=== PATIENT | female | born 1990 | race Caucasian/White ===

== ENCOUNTER 2018-08-05 20:55 | Emergency (ER) | payer BC, OTHER ==
--- NOTE | 2018-08-05 21:54 | RADIOLOGY REPORT (SQ) ---
EXAM DESCRIPTION: XR FOOT 3 OR MORE VIEWS COMPLETED DATE/TME: 08/05/2018 00:00 CLINICAL HISTORY: 28 years, Female, injury Findings: Bony alignment is anatomic. No fracture or dislocation. Soft tissues are unremarkable. IMPRESSION: No fracture.
[2018-08-05] MEDS ORDERED: ACETAMINOPHEN 325 MG TABLET PO ONE (23:29)
--- NOTE | 2018-08-05 23:33 | ER Document Report ---
HPI - HPI Patient complains to provider of: left heel pain Time Seen by Provider: 08/05/18 23:29 Context: Patient is a 28-year-old female presents to the emergency department complaining of generalized left heel pain. Patient states 4 days ago she was horsing around with friends when she hit her left heel on a heater. States she initially had pain at that time but states the pain had gotten better. Patient then states 2 days ago she hopped about 2 feet off a ladder and landed again on her left heel. Patient states since then she has had increased pain which has not been resolved. Patient states she did take Motrin prior to arrival to the emergency room. Patient denies any pain in her left ankle, left tib-fib, left knee, left femur or left hip. Past medical history: None Medications: None Allergies: None Past Medical History - General Information source: Patient - Social History Smoking Status: Never Smoker Family History: Reviewed & Not Pertinent Vertical Provider Document - CONSTITUTIONAL Agree With Documented VS: Yes Notes: GENERAL: Alert, interacts well. No acute distress. HEAD: Normocephalic, atraumatic. EYES: Pupils equal, round, and reactive to light. Extraocular movements intact. ENT: Oral mucosa moist, tongue midline. NECK: Full range of motion. Supple. Trachea midline. LUNGS: Clear to auscultation bilaterally, no wheezes, rales, or rhonchi. No respiratory distress. HEART: Regular rate and rhythm. No murmur ABDOMEN: Soft, non-tender. Non-distended. Bowel sounds present in all 4 quadrants. EXTREMITIES: Moves all 4 extremities spontaneously. normal radial and dorsalis pedis pulses bilaterally. No cyanosis. Minor edema noted to patient's left ankle. Patient denies pain on palpation lateral or medial malleolus. Patient only complains of pain to palpation of left heel. No obvious ecchymosis, erythema or trauma noted. No pain upon palpation patient's left tib-fib, left calf, left knee, left femur, left hip. BACK: no cervical, thoracic, lumbar midline tenderness. No saddle anesthesia, normal distal neurovascular exam. NEUROLOGICAL: Alert and oriented x3. Normal speech. cranial nerves II through XII grossly intact PSYCH: Normal affect, normal mood. SKIN: Warm, dry, normal turgor. No rashes or lesions noted. Course - Re-evaluation Re-evalutation: Discussed with patient at length negative x-rays. Discussed use of ankle s tirrup and following up withPrimary care provider and inevitably orthopedics. Patient voices understanding and is stable for discharge. - Vital Signs Vital signs: Temp Pulse Resp BP Pulse Ox 98 F 107 H 20 134/86 H 100 08/05/18 21:43 08/05/18 21:43 08/05/18 21:43 08/05/18 21:43 08/05/18 21:43 Discharge - Discharge Clinical Impression: Heel pain Qualifiers: Laterality: left Qualified Code(s): M79.672 - Pain in left foot Condition: Stable Disposition: HOME, SELF-CARE Instructions: Ice & Elevation (OM) Additional Instructions: As we discussed you have been seen and treated in the emergency department for an injury to your left heel. Please take [id number] Tylenol and Motrin for continued pain. Please wear splint and use crutches until you follow-up with primary care provider or orthopedics. Please return to the emergency room for any other concerning symptoms. Referrals: ETHAN OTT MD [ACTIVE STAFF] - Follow up as needed
[2018-08-06 00:07] VITALS: BP 117/69
== END 2018-08-05 23:43 | disposition home or self-care (01) ==
LOC: ER 20:55
DX: M79.672 Pain in left foot (principal); R60.0 Localized edema
CPT/HCPCS: 99283; 73630; L1902